=== PATIENT | female | born 1995 | race Caucasian/White ===

== ENCOUNTER → 2024-02-26 | Emergency (ER) | payer SELFPAY ==
[~2024-02-26] VITALS: Ht 162.6 cm; Wt 100.7 kg
[~2024-02-26] MED LIST: HYDRALAZINE HCL 20 MG/ML VIAL IV PRN; IBUPROFEN200 MG PO; IBUPROFEN800 MG PO; TYLENOL325 MG PO
[2024-02-26 20:05] VITALS: PULSE 82; RESP 18; TEMP 99.1; O2SAT 100
== END | disposition home or self-care (01) ==
LOC: EDBD 19:59 → FSED 20:03
DX: S46.811A Strain of other muscles, fascia and tendons at shoulder and upper arm level, right arm, initial encounter (principal); V53.5XXA Driver of pick-up truck or van injured in collision with car, pick-up truck or van in traffic accident, initial encounter; Y92.488 Other paved roadways as the place of occurrence of the external cause; J45.909 Unspecified asthma, uncomplicated
CPT/HCPCS: 72100; 81025; 99283